=== PATIENT | female | born 2000 | race Caucasian/White ===

== ENCOUNTER 2019-11-16 10:18 | Emergency (ER) | payer OTHER ==
[~2019-11-16] VITALS: Ht 165.1 cm; Wt 63.5 kg
[2019-11-16] MEDS ORDERED: PANTOPRAZOLE 40 MG VIAL ONE (10:35)
[2019-11-16] MEDS ORDERED: METOCLOPRAMIDE HCL 10 MG/2 ML VIAL ONE (10:35)
[2019-11-16] MEDS ORDERED: ONDANSETRON HCL/PF 4 MG/2 ML VIAL ONE (10:35)
[2019-11-16] MEDS: METOCLOPRAMIDE HCL 10 MG/2 ML VIAL IV ONE (10:40)
[2019-11-16] MEDS: PANTOPRAZOLE 40 MG VIAL IV ONE (10:40)
[2019-11-16] MEDS: IV NS 0.9% 1,000 ML BAG IV ONE (10:40)
[2019-11-16] MEDS: ONDANSETRON HCL/PF 4 MG/2 ML VIAL IVP ONE (10:40)
--- NOTE | 2019-11-16 10:49 | NUR ---
BIBS W/ BOYFRIEND TO ER BED 1. AAOX4. NOT IN RESP DISTRESS. AMBULATORY. CAME IN FOR EPIGASTRIC ABDOMINAL PAIN STARTED TODAY 9/10 SHARP BURNING SENSATION. PT REPORTS NAUSEA, VOMMITING AND DIARRHEA. PT PASSED OUT IN THE WAITING ROOM WHILE BEING CALLED FOR TRIAGE, NO INJURY OBTAINED. PT HOOKED ON MONITOR. MD WAS AT BEDSIDE FOR EVAL. ORDERS RECEIVED, NOTED AND CARRIED OUT. IV LINE OBTAINED ON THE R AC 20G, BLOOD DRAWN AND GIVEN TO HOT PLATE [employer]OD PRESS OPERATOR AT BEDSIDE. PT IS UNABLE TO PROVIDE URINE SAMPLE DESPITE TRYING.
[2019-11-16 10:56] LABS: BASOPHILS # (AUTO) 0.1 /CMM (0.0-0.2); BASOPHILS % (AUTO) 0.4 % (0.0-2.0); EOSINOPHILS % (AUTO) 1.3 % (0.0-6.0); HEMATOCRIT 47 % (33-45); HEMOGLOBIN 16.2 g/dL (11.5-14.8); LYMPHOCYTES % (AUTO) 13.4 % (20.0-44.0); MEAN CORPUSCULAR HGB CONC 34 g/dl (31.0-36.0); MEAN CORPUSCULAR VOLUME 90 fL (82-100); MONOCYTES # (AUTO) 0.5 /CMM (0.1-1.30); MONOCYTES % (AUTO) 3.4 % (2.0-12.0); NEUTROPHILS # (AUTO) 12.1 /CMM (1.8-8.9); NEUTROPHILS % (AUTO) 81.5 % (43.0-81.0); PLATELET COUNT (AUTO) 317 /CMM (150-450); RED BLOOD CELL COUNT(AUTO) 5.25 MIL/uL (4.0-5.2); WHITE BLOOD COUNT (AUTO) 14.9 K/uL (4.3-11.0)
--- NOTE | 2019-11-16 10:56 | NUR ---
us at bedside
[2019-11-16 11:02] LABS: BILIRUBIN,DIRECT 0.1 mg/dL (0.0-0.2); BILIRUBIN,TOTAL 0.8 mg/dL (0.2-1.0); CALCIUM, SERUM 10.5 mg/dL (8.5-10.1); CREATININE 1.1 mg/dL (0.6-1.3); POTASSIUM 4.1 mmol/L (3.5-5.1); TOTAL PROTEIN, SERUM 8.8 g/dL (6.4-8.2)
[2019-11-16 11:43] LABS: APPEARANCE,URINE CLEAR (CLEAR); BILIRUBIN,URINE SMALL (NEGATIVE); BLOOD, URINE NEGATIVE Ery/uL (NEGATIVE); COLOR,URINE DARK YELLO (YELLOW); KETONES,URINE 40 (NEGATIVE); LEUKOCYTE ESTERASE ,URINE NEGATIVE (NEGATIVE); NITRITE, URINE NEGATIVE (NEGATIVE); PH,URINE 6.5 (5.0-8.0); PROTEIN,URINE 30 mg/dl (NEGATIVE); UGLUCOSE NEGATIVE (NEGATIVE); UROBILINOGEN,URINE 0.2 EU/dL (0.2)
[2019-11-16] MEDS ORDERED: HYDROMORPHONE 1 MG/1 ML DISP.SYRIN ONE (11:52)
[2019-11-16] MEDS: HYDROMORPHONE INJ 0.5 MG/0.5 ML SYRINGE IV ONE (11:55)
[2019-11-16 11:57] LABS: BACTERIA,URINE Moderate /HPF (None Seen); MUCUS,URINE Moderate /LPF (None Seen); RBC,URINE 0-2 /HPF (0-2); SQUAMOUS EPITHELIAL CELL,UR Few /HPF (None Seen)
--- NOTE | 2019-11-16 12:00 | NUR ---
pt to ct
--- NOTE | 2019-11-16 13:03 | NUR ---
Patient discharged to home in stable condition. Written and verbal after care instructions given. Patient verbalizes understanding of instruction.IV removed. Catheter intact and site benign. Pressure and 4x4 applied to site. No bleeding noted. Pt ambulatory with a steady gait
[2019-11-16 13:58] VITALS: BP 118/67
== END 2019-11-16 13:05 | disposition home or self-care (01) ==
LOC: ER 10:22
DX: R10.13 Epigastric pain (principal); R19.7 Diarrhea, unspecified; R11.2 Nausea with vomiting, unspecified; R06.4 Hyperventilation
CPT/HCPCS: 36415; 74176; 76700; 80048; 80076; 80305; 81001; 82962; 83690; 84703; 85025; 87086; 93005; 96361; 96374; 96375; 99285; C9113; J1170; J2405; J2765; J7030; 81000-TC

== ENCOUNTER 2019-11-18 06:38 | Emergency (ER) | payer OTHER ==
[~2019-11-18] VITALS: Ht 165.1 cm; Wt 63.5 kg
[2019-11-18] MEDS ORDERED: LORAZEPAM INJ 2 MG/ML VIAL ONE (06:56)
[2019-11-18] MEDS ORDERED: ONDANSETRON HCL/PF 4 MG/2 ML VIAL ONE ×2 (06:56→08:06)
[2019-11-18] MEDS ORDERED: LORAZEPAM INJ 2 MG/ML VIAL IV ONE (07:00)
[2019-11-18] MEDS ORDERED: ONDANSETRON HCL/PF 4 MG/2 ML VIAL IVP ONE (07:00)
[2019-11-18] MEDS ORDERED: IV NS 0.9% 1,000 ML BAG IV ONE (07:00)
--- NOTE | 2019-11-18 07:03 | NUR ---
PATIENT CAME TO ER BED 1 C/O MID EPIGASTRIC PAIN SINCE YESTERDAY. PATIENT STATES OF A SHARP AND BURNING PAIN 03/15. C/O OF NAUSEA AND VOMITING PRIOR TO ARRIVAL, DENIES BLOOD IN VOMIT. AAOX4. NO SOB. BREATHING EVENLY AND UNLABORED ON ROOM AIR.
--- NOTE | 2019-11-18 07:05 | NUR ---
urine and labs sent
[2019-11-18 07:11] LABS: EOSINOPHILS % (AUTO) 2.8 % (0.0-6.0); HEMATOCRIT 47 % (33-45); HEMOGLOBIN 15.8 g/dL (11.5-14.8); LYMPHOCYTES # (AUTO) 1.8 /CMM (0.8-4.8); LYMPHOCYTES % (AUTO) 8.9 % (20.0-44.0); MEAN CORPUSCULAR HGB CONC 34 g/dl (31.0-36.0); MEAN CORPUSCULAR VOLUME 92 fL (82-100); MONOCYTES # (AUTO) 0.6 /CMM (0.1-1.30); MONOCYTES % (AUTO) 2.8 % (2.0-12.0); NEUTROPHILS # (AUTO) 17.1 /CMM (1.8-8.9); NEUTROPHILS % (AUTO) 85.5 % (43.0-81.0); PLATELET COUNT (AUTO) 318 /CMM (150-450); RED BLOOD CELL COUNT(AUTO) 5.11 MIL/uL (4.0-5.2)
--- NOTE | 2019-11-18 07:22 | NUR ---
RECEIVED REPORT FROM JIMMY MOSELEY FOR CARYN, PT IS AAOX4, NOT IN RESPIRATORY DISTRESS, V/S STABLE, KEPT RESTED AND COMFORTABLE, WILL CONTINUE TO MONITOR.
[2019-11-18 07:30] LABS: CALCIUM, SERUM 9.3 mg/dL (8.5-10.1); CREATININE 1.2 mg/dL (0.6-1.3); POTASSIUM 3.3 mmol/L (3.5-5.1)
[2019-11-18 07:36] LABS: ALBUMIN 4.9 g/dL (3.4-5.0); BILIRUBIN,DIRECT 0.2 mg/dL (0.0-0.2); TOTAL PROTEIN, SERUM 8.2 g/dL (6.4-8.2)
[2019-11-18] MEDS ORDERED: ONDANSETRON HCL/PF 4 MG/2 ML VIAL IV ONE (08:30)
--- NOTE | 2019-11-18 08:56 | NUR ---
IV removed. Catheter intact and site benign. Pressure and 4x4 applied to site. No bleeding noted. Patient discharged to home in stable condition. Boyfriend at waiting room to excelsior picker patient. Written and verbal after care instructions given. Patient verbalizes understanding of instruction.
[2019-11-18 08:57] VITALS: BP 136/74
== END 2019-11-18 08:58 | disposition home or self-care (01) ==
LOC: ER 06:38
DX: R11.15 Cyclical vomiting syndrome unrelated to migraine (principal)
CPT/HCPCS: 36415; 80048; 80076; 84703; 85025; 96361; 96374; 96375; 96376; 99284; J2060; J2405 ×2; J7030

== ENCOUNTER 2020-03-08 15:22 | Emergency (ER) | payer OTHER ==
[~2020-03-08] VITALS: Ht 152.4 cm; Wt 54.4 kg
[2020-03-08 15:28] VITALS: BP 128/84
--- NOTE | 2020-03-08 15:55 | NUR ---
AT BEDSIDE FOR EVAL.
--- NOTE | 2020-03-08 16:25 | NUR ---
Patient discharged to home in stable condition. Written and verbal after care instructions given. Patient verbalizes understanding of instruction.
== END 2020-03-08 16:31 | disposition home or self-care (01) ==
LOC: ER 15:26
DX: S61.431A Puncture wound without foreign body of right hand, initial encounter (principal); K58.9 Irritable bowel syndrome, unspecified; W55.01XA Bitten by cat, initial encounter; Y93.89 Activity, other specified; Y92.89 Other specified places as the place of occurrence of the external cause; Y99.0 Civilian activity done for income or pay

== ENCOUNTER 2020-12-31 05:46 | Inpatient (IN) | payer OTHER ==
[~2020-12-31] VITALS: Ht 152.4 cm; Wt 56.7 kg
[2020-12-31] MEDS ORDERED: IV NS 0.9% 1,000 ML BAG IV ONE ×2 (06:00→06:30)
--- NOTE | 2020-12-31 06:01 | NUR ---
PRSENTED TO THE ER FOR C/O UPEPR ABD PAIN , N/V/D SINCE LAST NIGHT, W/ HX OF IBS AND CYCLIC VOMITING. REPORTED QUIT SMOKING MARIJUANA LAST MONTH. NO HEMATURIA OR DYSURIA . CURRENTLY ON HER MENSTRUAL PERIOD. PT WAS PLACED IN BED 6 ER, ON AMONITOR, VSS. WILL CONT TO MONITOR WHILE AWAITING FOR MD'S NIKI
[2020-12-31 06:13] LABS: BASOPHILS # (AUTO) 0.1 K/uL (0.0-0.2); BASOPHILS % (AUTO) 1.1 % (0.0-2.0); HEMATOCRIT 43 % (33-45); LYMPHOCYTES # (AUTO) 2.9 K/uL (0.8-4.8); LYMPHOCYTES % (AUTO) 31.6 % (20.0-44.0); MEAN CORPUSCULAR HGB CONC 35 g/dl (31.0-36.0); MEAN CORPUSCULAR VOLUME 89 fL (82-100); MONOCYTES # (AUTO) 0.5 K/uL (0.1-1.30); MONOCYTES % (AUTO) 5.7 % (2.0-12.0); NEUTROPHILS # (AUTO) 5.4 K/uL (1.8-8.9); NEUTROPHILS % (AUTO) 59.6 % (43.0-81.0); PLATELET COUNT (AUTO) 321 K/uL (150-450); RED BLOOD CELL COUNT(AUTO) 4.83 MIL/uL (4.0-5.2); WHITE BLOOD COUNT (AUTO) 9.1 K/uL (4.3-11.0)
[2020-12-31] MEDS ORDERED: HALOPERIDOL LACTATE INJ 5 MG/ML VIAL ONE (06:18)
[2020-12-31] MEDS ORDERED: diphenhydrAMINE HCL 50 MG/ML VIAL ONE (06:18)
[2020-12-31 06:19] LABS: CALCIUM, SERUM 9.9 mg/dL (8.5-10.1); CREATININE 1.1 mg/dL (0.6-1.3); POTASSIUM 3.5 mmol/L (3.5-5.1)
[2020-12-31 06:24] LABS: ALBUMIN 4.8 g/dL (3.4-5.0); BILIRUBIN,DIRECT 0.2 mg/dL (0.0-0.2); TOTAL PROTEIN, SERUM 8.4 g/dL (6.4-8.2)
[2020-12-31] MEDS ORDERED: HALOPERIDOL LACTATE INJ 5 MG/ML VIAL IV ONE (06:30)
[2020-12-31] MEDS ORDERED: HYDROMORPHONE 1 MG/1 ML DISP.SYRIN IV ONE (06:30)
[2020-12-31] MEDS ORDERED: diphenhydrAMINE HCL 50 MG/ML VIAL IV ONE (06:30)
--- NOTE | 2020-12-31 06:31 | NUR ---
DR HAYES IS THE GI DOCTOR AT [facility] FOR THE PATIENT. NUMBER TO REACH MD IS
--- NOTE | 2020-12-31 06:46 | NUR ---
pt assisted to bathroom. urine cup given. unable to provide urine at this time, dr. lopez aware
[2020-12-31] MEDS ORDERED: HYDROMORPHONE 1 MG/1 ML DISP.SYRIN ONE (06:59)
--- NOTE | 2020-12-31 08:15 | NUR ---
CALLED DR ABIGAIL MARTINEZ @ [facility] FOR THE PATIENT FOR A CALL BACK.
--- NOTE | 2020-12-31 08:30 | NUR ---
URINE COLLECTED AND SENT TO THE LAB
[2020-12-31 08:59] LABS: BILIRUBIN,URINE NEGATIVE (NEGATIVE); COLOR,URINE YELLOW (YELLOW); LEUKOCYTE ESTERASE ,URINE NEGATIVE (NEGATIVE); NITRITE, URINE NEGATIVE (NEGATIVE); PROTEIN,URINE NEGATIVE (NEGATIVE); UGLUCOSE NEGATIVE (NEGATIVE); UROBILINOGEN,URINE 0.2 EU/dL (0.2)
--- NOTE | 2020-12-31 09:24 | NUR ---
MOVE SHEET SUBMITTED.
[2020-12-31 09:35] LABS: BACTERIA,URINE Few /HPF (None Seen); SQUAMOUS EPITHELIAL CELL,UR Few /HPF (None Seen); WBC,URINE 0-2 /HPF (0-3)
[2020-12-31] MEDS ORDERED: LOPE2CAP40 PO (09:50)
[2020-12-31] MEDS ORDERED: SUCR1TAB PO (09:50)
[2020-12-31] MEDS ORDERED: AMIT25TA9 PO (09:50)
[2020-12-31] MEDS ORDERED: PANT40TA49 PO (09:50)
[2020-12-31] MEDS ORDERED: FAMO-108 PO (09:50)
[2020-12-31] MEDS ORDERED: PROC10TA29 PO (09:50)
[2020-12-31] MEDS ORDERED: ONDA4TAB11 PO (09:50)
[2020-12-31] MEDS ORDERED: HYOS0.1286 SL (09:50)
[2020-12-31] MEDS ORDERED: CYAN-51 PO (09:50)
[2020-12-31] MEDS ORDERED: UBID100C13 PO (09:50)
[2020-12-31] MEDS ORDERED: CEPH500C2 PO (09:50)
--- NOTE | 2020-12-31 09:55 | NUR ---
COVID SWAB DONE AND SENT TO THE LAB
[2020-12-31] MEDS ORDERED: ACETAMINOPHEN 325 MG TABLET PO PRN (10:30)
[2020-12-31] MEDS ORDERED: METOCLOPRAMIDE HCL 10 MG/2 ML VIAL IV PRN (10:30)
[2020-12-31] MEDS ORDERED: Z GUARD REMEDY 2 OZ OINT TP PRN (10:30)
[2020-12-31] MEDS: PANTOPRAZOLE 40 MG VIAL IV SCH (11:54)
[2020-12-31] MEDS ORDERED: PANTOPRAZOLE 40 MG VIAL ONE (11:55)
--- NOTE | 2020-12-31 12:16 | NUR ---
THE PATIENT IS ALERT AND ORIENETED X4. DENIES PAIN. IN ROOM AIR AND DENIES SOB. RESPIRATION REGULAR AND UNLABORED. VSS.
[2020-12-31] MEDS: IV NS 0.9% 1,000 ML IV PRN ×2 (12:20→15:25)
--- NOTE | 2020-12-31 14:53 | NUR ---
ROOM [facility]
--- NOTE | 2020-12-31 15:16 | NUR ---
TARIFF PUBLISHING AGENT NOTE RECEIVED PATIENT VIA GURNEY, PATIENT IS A/O X4. PATIENT IS BREATHING EVENLY AND NONLABORED ON ROOM AIR. NO SIGNS OF DISTRESS NOTED. PATIENT DOES NOT COMPLAIN OF PAIN AT THIS TIME. PATIENT HAS SOME NAUSEA, WILL GIVE PRN MEDICATION. VITALS BP 131/74 HR 93, RR 18, TEMP 97.2 SPO 02 100%. PATIENT AMBULATED TO THE BED SAFELY WITHOUT ASSISTANCE. NO DIZZINESS NOTED. IV ACCESS NOTED ON R HAND # 22 GAUGE PATENT AND INTACT. PATIENT WAS ORIENTED TO THE ROOM AND HOW TO USE THE CALL LIGHT. BELONGINGS ACCOUNTED FOR, SAFETY MEASURES IN PLACE, BED LOW LOCKED, CALL LIGHT WITHIN REACH WILL CONTINUE TO MONITOR
--- NOTE | 2020-12-31 15:18 | NUR ---
THE PATIENT IS TRANSFERED TO [facility] IN STABLE CONDITION AND PER POLICY.
[2020-12-31] MEDS: ONDANSETRON HCL/PF 4 MG/2 ML VIAL IVP PRN ×2 (15:25→21:34)
[2020-12-31] MEDS: HYDROMORPHONE INJ 2 MG/ML DISP.SYRIN IV PRN ×2 (15:51→20:52)
[2020-12-31 16:13] VITALS: BP 131/74
--- NOTE | 2020-12-31 18:30 | NUR ---
MS RN CLOSING NOTE PATIENT RESTING IN BED. PATIENT IS A/O X4. PATIENT IS BREATHING EVENLY AND NONLABORED ON ROOM AIR. NO SIGNS OF DISTRESS NOTED. PATIENT DOES NOT COMPLAIN OF PAIN AT THIS TIME. NO DIZZINESS NOTED. IV ACCESS NOTED ON R HAND # 22 GAUGE PATENT AND INTACT RUNNING NS @125 ML/HR. , SAFETY MEASURES IN PLACE, BED LOW LOCKED, CALL LIGHT WITHIN REACH WILL ENDORSE TO ONCOMING SHIFT
[2020-12-31] MEDS ORDERED: CALCIUM CARBONATE 500 MG TAB.CHEW PO PRN (20:00)
[2020-12-31] MEDS ORDERED: MAG HYDROX/AL HYDROX/SIMETH 30 ML UDC PO PRN (20:00)
--- NOTE | 2020-12-31 20:00 | NUR ---
MS RN OPENING NOTES PATIENT RESTING IN BED WITH MOTHER AT BEDSIDE, ALERT/ORIENTED X 4, PATIENT ABLE TO MAKE NEEDS KNOWN. PT STABLE ON RA, NO S/S OF DISTRESS OR SHORTNESS OF BREATH NOTED, BREATHING EVEN AND UNLABORED. NO COMPLAINTS OF PAIN OR VOMITING AT THIS TIME. PATIENT REPORTING HEART BURN/ACID REFLUX, REPORTED TO DR. WEI, PLACED NEW ORDERS FOR MAALOX AND TUMS AND CHANGED PATIENT TO NPO EXCEPT MEDS. RIGHT HAND #20G IV RUNNING NS @ 125 ML/HR. SAFETY MEASURES IN PLACE: BED LOCKED IN LOWEST POSITION, CALL LIGHT AND TABLE WITHIN REACH, SIDE RAILS UP X 2. WILL CONTINUE TO MONITOR
[2020-12-31 20:12] VITALS: BP 150/80
[2020-12-31] MEDS: ZOLPIDEM TARTRATE 5 MG TABLET PO PRN (21:34)
[2021-01-01] MEDS: IV NS 0.9% 1,000 ML IV PRN ×3 (00:20→17:37)
[2021-01-01] MEDS: HYDROMORPHONE INJ 2 MG/ML DISP.SYRIN IV PRN ×3 (01:54→14:42)
[2021-01-01 06:05] LABS: BASOPHILS # (AUTO) 0.1 K/uL (0.0-0.2); BASOPHILS % (AUTO) 0.7 % (0.0-2.0); EOSINOPHILS % (AUTO) 4.1 % (0.0-6.0); HEMATOCRIT 37 % (33-45); HEMOGLOBIN 12.9 g/dL (11.5-14.8); LYMPHOCYTES # (AUTO) 2.7 K/uL (0.8-4.8); LYMPHOCYTES % (AUTO) 35.6 % (20.0-44.0); MEAN CORPUSCULAR HGB CONC 34 g/dl (31.0-36.0); MEAN CORPUSCULAR VOLUME 91 fL (82-100); MONOCYTES # (AUTO) 0.4 K/uL (0.1-1.30); MONOCYTES % (AUTO) 5.8 % (2.0-12.0); NEUTROPHILS # (AUTO) 4.1 K/uL (1.8-8.9); NEUTROPHILS % (AUTO) 53.8 % (43.0-81.0); PLATELET COUNT (AUTO) 209 K/uL (150-450); RED BLOOD CELL COUNT(AUTO) 4.13 MIL/uL (4.0-5.2); WHITE BLOOD COUNT (AUTO) 7.6 K/uL (4.3-11.0)
[2021-01-01 06:36] LABS: CALCIUM, SERUM 8.4 mg/dL (8.5-10.1); CREATININE 0.7 mg/dL (0.6-1.3); MAGNESIUM 2.1 mg/dL (1.8-2.4); PHOSPHORUS 3.8 mg/dL (2.5-4.9); POTASSIUM 3.7 mmol/L (3.5-5.1)
[2021-01-01] MEDS: ONDANSETRON HCL/PF 4 MG/2 ML VIAL IVP PRN ×2 (06:57→17:37)
--- NOTE | 2021-01-01 07:00 | NUR ---
MS CLOSING NOTES PATIENT AWAKE IN BED, ALERT/ORIENTED X 4, PATIENT ABLE TO MAKE NEEDS KNOWN. PT STABLE ON RA, NO S/S OF DISTRESS OR SHORTNESS OF BREATH NOTED, BREATHING EVEN AND UNLABORED. NO COMPLAINTS OF PAIN OR VOMITING AT THIS TIME. RIGHT HAND #20G IV RUNNING NS @ 125 ML/HR. MEDICATIONS GIVEN ORDERED. PT NEEDS MET THROUGHOUT SHIFT. SAFETY MEASURES IN PLACE: BED LOCKED IN LOWEST POSITION, CALL LIGHT AND TABLE WITHIN REACH, SIDE RAILS UP X 2. WILL ENDORSE TO DAY SHIFT NURSE FOR CONTINUITY OF CARE
--- NOTE | 2021-01-01 07:20 | NUR ---
RN OPENING NOTES RECEIVED PT AWAKE, SITTING UP IN BED, A/O X4, ABLE TO VERBALIZE ALL NEEDS. DENIES ANY PAIN AND NO NAUSEA AT THIS TIME. IV ACCESS TO RH#20 INTACT AND PATENT, WITH NS @125 ML/HR INFUSING WELL. PT IN NO ACUTE DISTRESS. CALL LIGHT AND BEDSIDE TABLE WITHIN EASY REACH. WILL CONTINUE TO MONITOR.
[2021-01-01 08:00] VITALS: BP 120/69
[2021-01-01] MEDS: PANTOPRAZOLE 40 MG VIAL IV SCH (08:00)
--- NOTE | 2021-01-01 08:45 | NUR ---
RN NOTE SEEN AND EXAMINED BY TRISTAN MAYBERRY, HE WILL PUT IN ORDERS FOR PT.
[2021-01-01] MEDS ORDERED: LORAZEPAM INJ 2 MG/ML VIAL IV PRN (09:00)
[2021-01-01] MEDS: HALOPERIDOL LACTATE INJ 5 MG/ML VIAL IV PRN ×2 (09:54→19:56)
--- NOTE | 2021-01-01 10:05 | NUR ---
RN NOTE PT C/O FEELING VERY NAUSEOUS. JEFE HUDSON STILL ON THE FLOOR AND SAID OK TO GIVE THE PRN HALDOL AT THIS TIME. PRN HALDOL GIVEN ORDERED. WILL CONTINUE TO MONITOR PT.
--- NOTE | 2021-01-01 13:00 | NUR ---
RN NOTE PT'S MOM IN ROOM AND REQUESTED TO SEE SHIVAM MAYBERRY. LEFT MESSAGE TO JEFE HUDSON.
[2021-01-01 16:00] VITALS: BP 116/61
--- NOTE | 2021-01-01 17:35 | NUR ---
RN NOTE DNPTRISTAN CAME AND SPOKE TO PT AND HER MOM.
--- NOTE | 2021-01-01 19:00 | NUR ---
RECEIVED IN BED ALERT AND ORIENTATED X4 EYEGLASSES ON MOTHER AT HER SIDE. PATIENT IS SOFT SPOKEN REQUESTIN HALDOL FOR HER NAUSEA AND SHE IS RUBING HER ABD. PLACED ON TELE MONITOR D/T THE KNOWN SIDE EFFECTS OF HALDOL AND HOSPITAL PHARMACY PROTOCL SHE IS NSR ON THE MONITOR. HALDOL GIVEN AND EFFECTIVE.
--- NOTE | 2021-01-01 19:30 | NUR ---
RN CLOSING NOTES PT RESTING IN BED WITH HER MOM AT BEDSIDE; EASILY AROUSABLE AND ABLE TO VERBALIZE NEEDS. DENIES ANY PAIN, NO NAUSEA AT THIS TIME. IV ACCESS TO RH#20 INTACT AND PATENT, WITH NS @125 ML/HR INFUSING WELL. PT IN NO ACUTE DISTRESS. CALL LIGHT AND BEDSIDE TABLE WITHIN EASY REACH. ENDORSED TO NEXT SHIFT NURSE.
[2021-01-01 20:00] VITALS: BP 116/65
[2021-01-01] MEDS: ZOLPIDEM TARTRATE 5 MG TABLET PO PRN (23:46)
[2021-01-02] MEDS: IV NS 0.9% 1,000 ML IV PRN (02:20)
--- NOTE | 2021-01-02 04:45 | NUR ---
CLOSING NOTES: vISITED BY MOTHER UNTIL 20;30 MEDICATED X1 WITH HALDOL PLACED ON A TELE MONITOR TO MONITOR D/T GIVING HALDOL IV AND HOSPITAL PROTOCOL STATES PLACE ON TELE MONITOR MONITORING FOR PROLONGED QT /DISARRYHMIAS NONE SEEN. SHE HAD ZOFRAN 2 HOURS PRIOR ASKING FOR HALDOL FOR HER NAUSES . I WAS SLOWLY GIVING THE HALDOL IV SHE REQUESTES DILAUDID FOR PAIN. INFORMED HER I WANTD TO HAVE THIS TAKE EFFECT BEFORE ANY MORE MEDICATIONS WAS GIVEN. SHE FEEL ASLEEP AND APPEARED COMFORTABLE
[2021-01-02] MEDS: ONDANSETRON HCL/PF 4 MG/2 ML VIAL IVP PRN (06:20)
[2021-01-02 06:50] LABS: CREATININE 0.8 mg/dL (0.6-1.3); MAGNESIUM 2.1 mg/dL (1.8-2.4)
--- NOTE | 2021-01-02 07:09 | NUR ---
RN OPENING NOTES RECEIVE PT AWAKE IN BED AT THIS TIME. AOX4. NO SOB NOTED, NO S/O OF ANY ACUTE DISTRESS NOTED, DENIES PAIN/NAUSEA/VOMITTING AT THIS. BREATHING EVEN AND UNLABORED.STABLE ON RA. IV ACCESS IN RIGHT HAND G#20, INTACT, PATENT AND FLUSHING WELL. SAFETY PRECAUTIONS IN PLACE AND MAINTAINED AT ALL TIMES. BED IN LOWEST LOCKED POSITION, HOB ELEVATED, SIDE RAILS UP X2, CALL LIGHT AND TABLE WITHIN REACH. WILL CONTINUE TO MONITOR
[2021-01-02 08:00] VITALS: BP 114/74
[2021-01-02] MEDS: HYDROMORPHONE INJ 2 MG/ML DISP.SYRIN IV PRN (08:36)
[2021-01-02] MEDS: PANTOPRAZOLE 40 MG VIAL IV SCH (08:37)
--- NOTE | 2021-01-02 08:41 | NUR ---
PATIENT C/O OF SHARP THROBBING ABDOMINAL PAIN OF 8/10. PATIENT NOTED GRASPING SITE AND GRIMACING. VS BP 114/74, HR 78, RR 18, T 97.8, SPO2 98% ON RA. PER PATIENT REQUEST DILAUDID O.5MG IV Q4H PRN ADMINISTERED FOR PAIN PER ORDER. WILL CONTINUE WITH PLAN OF CARE
[2021-01-02] MEDS ORDERED: ONDA4TAB5 PO (09:55)
[2021-01-02] MEDS ORDERED: HYDR-3973 PO (09:55)
[2021-01-02] MEDS ORDERED: ESCITALOPRAM OXALATE (10 MG) 10 MG TABLET PO SCH (13:00)
--- NOTE | 2021-01-02 13:43 | NUR ---
CONTROL CENTER OPERATOR NOTED PT DISCHARGE HOME AT THIS TIME. PT MEDICALLY STABLE AND CLEARED FOR DISCHARGE BY DR LANGLEY. ALL DISCHARGE INSTRUCTIONS PROVIDED TO PT AND MOTHER AT BEDSIDE. PT VERBALIZED UNDERSTANDING. PT KEPT CLEAN AND DRY. ALL BELONGINGS WITH PATIENT. IV ACCESS REMOVED, PRESSURE APPLIED, SECURED WITH GAUZE AND TAPE, NO SIGN OF BLEEDING OR INFILTRATION NOTED. PT LEFT UNIT IN STABLE CONDITION, TRANSPORTED BY WHEEL CHAIR TO [facility] BY CNA. LICO STACY, CHARGE NURSE AND DR LANGLEY AWARE
[2021-01-03] MEDS ORDERED: ESCI5TAB PO (09:48)
== END 2021-01-02 13:55 | disposition home or self-care (01) | DRG 394 ==
LOC: ER 05:49 → TRANSITION 11:14 → MED 14:49
PROVIDERS: ADMIT Nurse Practitioner Acute Care; ATTEND Nurse Practitioner Acute Care
DX: R11.15 Cyclical vomiting syndrome unrelated to migraine (principal); F33.1 Major depressive disorder, recurrent, moderate; R79.89 Other specified abnormal findings of blood chemistry; Z20.822 Contact with and (suspected) exposure to COVID-19; K58.9 Irritable bowel syndrome, unspecified; F12.90 Cannabis use, unspecified, uncomplicated; F98.8 Other specified behavioral and emotional disorders with onset usually occurring in childhood and adolescence
CPT/HCPCS: 36415; 80048-TC; 80076-TC; 81001; 83690-TC; 83735-TC; 84100-TC; 84484-TC; 84702-TC; 85025-TC; 87081-TC; 87086-TC; C9113; C9803; G0378; J1170; J1200; J1630; J2060; J2405; J7030

== ENCOUNTER → 2021-03-14 | Emergency (ER) | payer OTHER ==
[~2021-03-14] VITALS: Ht 152.4 cm; Wt 56.7 kg
[~2021-03-14] MED LIST: AMIT25TA9 PO; CEPH500C2 PO; CYAN-51 PO; ESCI5TAB PO; FAMO-108 PO; HALOPERIDOL LACTATE INJ 5 MG/ML VIAL IV ONE; HALOPERIDOL LACTATE INJ 5 MG/ML VIAL ONE; HYDR-3973 PO; HYDROMORPHONE 1 MG/1 ML DISP.SYRIN ONE; HYDROMORPHONE INJ 2 MG/ML DISP.SYRIN IV ONE; HYOS0.1286 SL; IV NS 0.9% 1,000 ML BAG IV ONE; LOPE2CAP40 PO; LORA-259 PO; LORAZEPAM INJ 2 MG/ML VIAL IV ONE; LORAZEPAM INJ 2 MG/ML VIAL ONE; ONDA4TAB11 PO; ONDA4TAB5 PO; PANT40TA49 PO; PANTOPRAZOLE 40 MG VIAL IV ONE; PANTOPRAZOLE 40 MG VIAL ONE; PROC10TA29 PO; PROCHLORPERAZINE EDISYLATE 10 MG/2 ML VIAL IVP ONE; PROCHLORPERAZINE EDISYLATE 10 MG/2 ML VIAL ONE; SUCR1TAB PO; UBID100C13 PO
--- NOTE | 2021-03-14 09:15 | NUR ---
pt bibself with c/o nausea vomiting started this morning. Alert and oriented. kept comfortable in bed. safety measures in place
[2021-03-14 09:50] LABS: BASOPHILS # (AUTO) 0.1 K/uL (0.0-0.2); BASOPHILS % (AUTO) 0.6 % (0.0-2.0); EOSINOPHILS % (AUTO) 1.1 % (0.0-6.0); HEMATOCRIT 45 % (33-45); LYMPHOCYTES # (AUTO) 1.9 K/uL (0.8-4.8); LYMPHOCYTES % (AUTO) 10.9 % (20.0-44.0); MEAN CORPUSCULAR HGB CONC 34 g/dl (31.0-36.0); MEAN CORPUSCULAR VOLUME 92 fL (82-100); MONOCYTES # (AUTO) 0.4 K/uL (0.1-1.30); MONOCYTES % (AUTO) 2.2 % (2.0-12.0); NEUTROPHILS # (AUTO) 14.6 K/uL (1.8-8.9); NEUTROPHILS % (AUTO) 85.2 % (43.0-81.0); PLATELET COUNT (AUTO) 339 K/uL (150-450); RED BLOOD CELL COUNT(AUTO) 4.88 MIL/uL (4.0-5.2); WHITE BLOOD COUNT (AUTO) 17.1 K/uL (4.3-11.0)
[2021-03-14 10:05] LABS: ALANINE AMINOTRANSFERASE 28 U/L (12-78); ALBUMIN 4.4 g/dL (3.4-5.0); ALKALINE PHOSPHATASE 91 U/L (46-116); ASPARTATE AMINOTRANSFERASE 22 U/L (15-37); BILIRUBIN,DIRECT 0.1 mg/dL (0.0-0.2); BILIRUBIN,TOTAL 0.5 mg/dL (0.2-1.0); CALCIUM, SERUM 9.6 mg/dL (8.5-10.1); CARBON DIOXIDE 21 mmol/L (21-32); CHLORIDE 107 mmol/L (98-107); CREATININE 1.1 mg/dL (0.6-1.3); GLUCOSE 148 mg/dL (74-106); POTASSIUM 4.6 mmol/L (3.5-5.1); SODIUM SERUM 142 mmol/L (136-145); TOTAL PROTEIN, SERUM 8.5 g/dL (6.4-8.2); UREA NITROGEN, BLOOD 15 mg/dL (7-18)
--- NOTE | 2021-03-14 10:10 | NUR ---
PIV INSERTED IN RIGH HAND G#20. GOOD BLOOD RETURN, INTACT, PATENT AND FLUSHING WELL
[2021-03-14 12:58] VITALS: BP 124/80
--- NOTE | 2021-03-14 13:01 | NUR ---
Patient discharged to home in stable condition. Written and verbal after care instructions given. Patient verbalizes understanding of instruction.
== END | disposition home or self-care (01) ==
LOC: ER 09:06
DX: R11.15 Cyclical vomiting syndrome unrelated to migraine (principal); R10.84 Generalized abdominal pain; Z79.899 Other long term (current) drug therapy
CPT/HCPCS: 36415; 80048; 80076; 84484; 85025; 96361; 96374; 96375; 99284; C9113; J0780; J1170; J1630; J2060; J7030